=== PATIENT | male | born 1995 | race Hispanic/Latino ===

== ENCOUNTER 2020-02-19 16:31 | Emergency (ER) | payer SELFPAY ==
--- NOTE | 2020-02-19 17:50 | EDPHYS ---
Physician Documentation [facility] Name: Judd Sifuentes Age: 24 yrs Sex: Male : 1995 Arrival Date: 02/19/2020 Time: 16:33 Bed 15 Private MD: ED Physician Mynor Wells HPI: 02/18 17:20 This 24 yrs old Male presents to ER via Wheelchair with complaints of Toe jr8 Injury. 17:20 The patient presents with pain, that is acute, tenderness. The complaints affect the jr8 right foot. Context: The problem was sustained at home. Onset: The symptoms/episode began/occurred acutely, yesterday. Modifying factors: The symptoms are alleviated by nothing, the symptoms are aggravated by weight bearing. Associated signs and symptoms: The patient has no apparent associated signs or symptoms. Severity of symptoms: At their worst the symptoms were mild, in the emergency department the symptoms are unchanged. The patient has not experienced similar symptoms in the past. The patient has not recently seen a physician. Patient stated that he stubbed his 5th toe on right foot twice yesterday. Has bruising and pain with swelling to digit. Wants to make sure everything is ok . Historical: - Allergies: 16:46 No Known Allergies; ca1 - Home Meds: 16:46 None [Active]; ca1 - PMHx: 16:46 None; ca1 - PSHx: 16:46 None; ca1 - Immunization history:: Adult Immunizations not up to date. - Social history:: Smoking status: Patient reports the use of cigarette tobacco products, denies chronic smoking, but will smoke occasionally. ROS: 17:20 Eyes: Negative for injury, pain, redness, and discharge, ENT: Negative for injury, jr8 pain, and discharge, Neck: Negative for injury, pain, and swelling, Cardiovascular: Negative for chest pain, palpitations, and edema, Respiratory: Negative for shortness of breath, cough, wheezing, and pleuritic chest pain, Abdomen/GI: Negative for abdominal pain, nausea, vomiting, diarrhea, and constipation, Back: Negative for injury and pain, Skin: Negative for injury, rash, and discoloration, Neuro: Negative for headache, weakness, numbness, tingling, and seizure. 17:20 MS/extremity: Positive for ecchymosis, pain, swelling, tenderness, of the right fifth toe. Exam: 17:20 Constitutional: This is a well developed, well nourished patient who is awake, alert, jr8 and in no acute distress. Cardiovascular: Regular rate and rhythm with a normal S1 and S2. No gallops, murmurs, or rubs. Normal PMI, no JVD. No pulse deficits. Respiratory: Lungs have equal breath sounds bilaterally, clear to auscultation and percussion. No rales, rhonchi or wheezes noted. No increased work of breathing, no retractions or nasal flaring. Skin: Warm, dry with normal turgor. Normal color with no rashes, no lesions, and no evidence of cellulitis. Neuro: Awake and alert, GCS 15, oriented to person, place, time, and situation. Cranial nerves II-XII grossly intact. Motor strength 5/5 in all extremities. Sensory grossly intact. Cerebellar exam normal. Normal gait. 17:20 Musculoskeletal/extremity: Extremities: grossly normal except: noted in the right fifth toe: ecchymosis, pain, swelling, tenderness, ROM: intact in all extremities, Circulation is intact in all extremities. Sensation intact. Vital Signs: 16:44 BP 115 / 60; Pulse 67; Resp 18 S; Temp 98.1(TE); Pulse Ox 99% on R/A; Weight 60.33 kg ca1 (R); Height 5 ft. 5 in. (165.10 cm) (R); Pain 6/10; 17:07 BP 124 / 70; Pulse 70; Resp 17; Pulse Ox 98% on R/A; tw2 17:54 BP 115 / 60; Pulse 72; Resp 17; Pulse Ox 99% on R/A; tw2 16:44 Body Mass Index 22.13 (60.33 kg, 165.10 cm) ca1 MDM: 16:48 Patient medically screened. jr8 17:49 Data reviewed: vital signs, nurses notes, radiologic studies, plain films, and as a jr8 result, I will discharge patient. Data interpreted: Pulse oximetry: on room air is 98 %. Interpretation: normal. Counseling: I had a detailed discussion with the patient and/or guardian regarding: the historical points, exam findings, and any diagnostic results supporting the discharge/admit diagnosis, radiology results, the need for outpatient follow up, a family practitioner, to return to the emergency department if symptoms worsen or persist or if there are any questions or concerns that arise at home. 02/18 17:00 Order name: XRAY Foot RIGHT 3 View jr8 Administered Medications: No medications were administered Disposition: 19:01 Co-signature as Attending Physician, Mynor Wells MD. rn Disposition: 02/19/20 17:50 Discharged to Home. Impression: Sprain of toe, Contusion of right lesser toe(s) without damage to nail. - Condition is Stable. - Discharge Instructions: Contusion. - Medication Reconciliation Form, Thank You Letter, Antibiotic Education, Prescription Opioid Use, Work release form, Family Work Release form. - Follow up: Private Physician; When: As needed; Reason: Recheck today's complaints, Continuance of care, Re-evaluation by your physician. - Problem is new. - Symptoms have improved. Signatures: Dispatcher [employer] EDMS Mynor Wells MD MD rn Roszak, Josh, PA PA jr8 Yaneli Sprague RN RN tw2 Brianna Velásquez RN RN ca1 Corrections: (The following items were deleted from the chart) 17:50 17:50 02/19/2020 17:50 Discharged to Home. Impression: Sprain of toe. Condition is jr8 Stable. Forms are Work release form, Family Work Release, Medication Reconciliation Form, Thank You Letter, Antibiotic Education, Prescription Opioid Use. Follow up: Private Physician; When: As needed; Reason: Recheck today's complaints, Continuance of care, Re-evaluation by your physician. Problem is new. Symptoms have improved. jr8 17:55 17:50 02/19/2020 17:50 Discharged to Home. Impression: Sprain of toe; Contusion of tw2 right lesser toe(s) without damage to nail. Condition is Stable. Forms are Work release form, Family Work Release, Medication Reconciliation Form, Thank You Letter, Antibiotic Education, Prescription Opioid Use. Follow up: Private Physician; When: As needed; Reason: Recheck today's complaints, Continuance of care, Re-evaluation by your physician. Problem is new. Symptoms have improved. jr8
--- NOTE | 2020-02-19 17:50 | ER ---
Nurse's Notes [facility] Name: Judd Sifuentes Age: 24 yrs Sex: Male : 1995 Arrival Date: 02/19/2020 Time: 16:33 Bed 15 Private MD: Diagnosis: Sprain of toe;Contusion of right lesser toe(s) without damage to nail Presentation: 02/18 16:44 Chief complaint: Patient states: Hit 5th digit of R foot to bed twice today. ca1 Coronavirus screen: Client denies travel out of the [place] in the last 14 days. At this time, the client does not indicate any symptoms associated with coronavirus-19. Ebola Screen: Patient negative for fever greater than or equal to 101.5 degrees Fahrenheit, and additional compatible Ebola Virus Disease symptoms Patient denies exposure to infectious person. Patient denies travel to an Ebola-affected area in the 21 days before illness onset. No symptoms or risks identified at this time. Initial Sepsis Screen: Does the patient meet any 2 criteria? No. Patient's initial sepsis screen is negative. Does the patient have a suspected source of infection? No. Patient's initial sepsis screen is negative. Risk Assessment: Do you want to hurt yourself or someone else? Patient reports no desire to harm self or others. Onset of symptoms was February 19, 2020. 16:44 Method Of Arrival: Wheelchair ca1 16:44 Acuity: MARKO 4 ca1 Historical: - Allergies: 16:46 No Known Allergies; ca1 - Home Meds: 16:46 None [Active]; ca1 - PMHx: 16:46 None; ca1 - PSHx: 16:46 None; ca1 - Immunization history:: Adult Immunizations not up to date. - Social history:: Smoking status: Patient reports the use of cigarette tobacco products, denies chronic smoking, but will smoke occasionally. Screenin:48 Abuse screen: Denies threats or abuse. Nutritional screening: No deficits noted. tw2 Tuberculosis screening: No symptoms or risk factors identified. Fall Risk None identified. Assessment: 16:49 General: Appears in no apparent distress. Behavior is calm, cooperative, appropriate tw2 for age. Pain: Complains of pain in right fifth toe and Right fifth toenail. Neuro: Level of Consciousness is awake, alert, obeys commands, Oriented to person, place, time, situation. 17:05 Cardiovascular: Patient's skin is warm and dry. Respiratory: Airway is patent tw2 Respiratory effort is even, unlabored, Respiratory pattern is regular, symmetrical. GI: No signs and/or symptoms were reported involving the gastrointestinal system. : No signs and/or symptoms were reported regarding the genitourinary system. EENT: No signs and/or symptoms were reported regarding the EENT system. Derm: peeling and dryness noted to bottom of RIGHT foot, appears to be a thickened right 5th toenail with bruising noted around the nail. Musculoskeletal: Circulation, motion, and sensation intact. Range of motion: intact in all extremities. 17:07 Reassessment: Patient appears in no apparent distress at this time. No changes from tw2 previously documented assessment. Patient and/or family updated on plan of care and expected duration. Pain level reassessed. Patient is alert, oriented x 3, equal unlabored respirations, skin warm/dry/pink. 17:54 Reassessment: Patient appears in no apparent distress at this time. No changes from tw2 previously documented assessment. Patient and/or family updated on plan of care and expected duration. Pain level reassessed. Patient is alert, oriented x 3, equal unlabored respirations, skin warm/dry/pink. Vital Signs: 16:44 BP 115 / 60; Pulse 67; Resp 18 S; Temp 98.1(TE); Pulse Ox 99% on R/A; Weight 60.33 kg ca1 (R); Height 5 ft. 5 in. (165.10 cm) (R); Pain 6/10; 17:07 BP 124 / 70; Pulse 70; Resp 17; Pulse Ox 98% on R/A; tw2 17:54 BP 115 / 60; Pulse 72; Resp 17; Pulse Ox 99% on R/A; tw2 16:44 Body Mass Index 22.13 (60.33 kg, 165.10 cm) ca1 ED Course: 16:33 Patient arrived in ED. as 16:45 Triage completed. ca1 16:46 Arm band placed on right wrist. ca1 16:48 Yaneli Sprague RN is Primary Nurse. tw2 16:48 Kin Lui PA is PHCP. jr8 16:48 Mynor Wells MD is Attending Physician. jr8 16:48 Bed in low position. Call light in reach. Pulse ox on. NIBP on. tw2 17:55 No provider procedures requiring assistance completed. Patient did not have IV access tw2 during this emergency room visit. 17:56 XRAY Foot RIGHT 3 View In Process Unspecified. EDMS Administered Medications: No medications were administered Outcome: 17:50 Discharge ordered by . sydni 17:55 Discharged to home ambulatory, with significant other. tw2 17:55 Condition: stable 17:55 Discharge instructions given to patient, significant other, Instructed on discharge instructions, follow up and referral plans. Demonstrated understanding of instructions, follow-up care. 17:55 Patient left the ED. tw2 Signatures: Dispatcher [employer] EDConnie Valero Josh, PA PA jr8 Yaneli Sprague RN RN tw2 Brianna Velásquez RN RN ca1 Corrections: (The following items were deleted from the chart) 17:07 16:49 Neuro: Level of Consciousness is awake, alert, obeys commands, Oriented to tw2 person, place, time, situation, tw2
[2020-02-19 18:20] VITALS: TEMP 98.1
[2020-02-19 18:23] VITALS: BP 115/60; O2SAT 99
--- NOTE | 2020-02-19 18:25 | RAD REPORT ---
EXAM DESCRIPTION: RAD - Foot Right 3 View - 02/19/2020 5:55 pm CLINICAL HISTORY: PAIN COMPARISON: No comparisons FINDINGS: Mild soft tissue swelling is present involving the fifth toe. No acute fracture or disloca tion seen.
== END 2020-02-19 17:55 | disposition home or self-care (01) ==
LOC: ER 16:31
DX: S93.504A Unspecified sprain of right lesser toe(s), initial encounter (principal); S90.121A Contusion of right lesser toe(s) without damage to nail, initial encounter; W22.03XA Walked into furniture, initial encounter; Y93.01 Activity, walking, marching and hiking; Y92.003 Bedroom of unspecified non-institutional (private) residence as the place of occurrence of the external cause; F17.210 Nicotine dependence, cigarettes, uncomplicated
CPT/HCPCS: 99283

== ENCOUNTER 2020-09-23 12:36 | Emergency (ER) | payer SELFPAY ==
--- NOTE | 2020-09-23 14:12 | RAD REPORT ---
EXAM DESCRIPTION: Diane Bray (2 Views)09/23/2020 2:05 pm CLINICAL HISTORY: Chest pain COMPARISON: None FINDINGS: The lungs appear clear of acute infiltrate. The heart is normal size IMPRESSION: No acute abnormalities displayed
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
[2020-09-23 14:38] VITALS: BP 137/82; TEMP 98; O2SAT 100
== END 2020-09-23 14:27 | disposition home or self-care (01) ==
LOC: ER 12:36
DX: R07.89 Other chest pain (principal)
CPT/HCPCS: 71046; 99283

== ENCOUNTER 2021-01-16 16:12 | Emergency (ER) | payer SELFPAY ==
[2021-01-16] MEDS ORDERED: HYDROCODONE/APAP 5/325 MG TAB ONE (18:35)
[2021-01-16 18:41] LABS: Urine Blood Trace-intact (Negative); Urine Glucose Negative (Negative); Urine Protein Negative (Negative)
--- NOTE | 2021-01-16 19:12 | RAD REPORT ---
EXAM DESCRIPTION: RAD - Lumbar Spine 3 Views - 01/16/2021 6:51 pm CLINICAL HISTORY: Back pain FINDINGS: The alignment of the lumbar spine is satisfactory. No fracture or dislocation is seen. Hemisacralization L5
--- NOTE | 2021-01-16 22:36 | EDPHYS ---
Physician Documentation [facility] Name: Judd Sifuentes Age: 25 yrs Sex: Male : 1995 Arrival Date: 01/16/2021 Time: 16:32 Bed 12 Private MD: ED Physician Martin Welch HPI: 01/16 22:29 This 25 yrs old Male presents to ER via Ambulatory with complaints of Fever, cp Back Pain. 22:29 The patient reports fever, with an emergency department temperature of 100.4 degrees cp Fahrenheit. Onset: The symptoms/episode began/occurred this morning. Associated signs and symptoms: Pertinent positives: backache, body aches, Pertinent negatives: abdominal pain, chest pain, cough, diarrhea, shortness of breath, sore throat, vomiting. Severity of symptoms: in the emergency department the symptoms have improved moderately. Historical: - Allergies: 18:03 No Known Allergies; aa5 - Home Meds: 18:00 None [Active]; aa5 - PMHx: 18:00 None; aa5 - PSHx: 18:00 None; aa5 - Immunization history:: Client reports having NOT received the Covid vaccine. - Social history:: Smoking status: Patient reports the use of cigarette tobacco products, denies chronic smoking, but will smoke occasionally. ROS: 22:31 Eyes: Negative for injury, pain, redness, and discharge. cp 22:31 Constitutional: Positive for body aches, fever, Negative for poor PO intake. 22:31 ENT: Negative for ear pain, sore throat, difficulty swallowing, difficulty handling secretions. 22:31 Neck: Negative for pain with movement, pain at rest, stiffness. 22:31 Cardiovascular: Negative for chest pain. 22:31 Respiratory: Negative for cough, shortness of breath, wheezing. 22:31 Abdomen/GI: Negative for abdominal pain, nausea, vomiting, and diarrhea. 22:31 Back: Positive for pain at rest, pain with movement, of the mid and lower back. 22:31 Neuro: Negative for altered mental status, headache, numbness, tingling, weakness. 22:31 All other systems are negative. Exam: 22:32 Head/Face: Normocephalic, atraumatic. cp 22:32 Constitutional: The patient appears in no acute distress, alert, awake, comfortable, non-toxic, well developed, well nourished. 22:32 Eyes: Periorbital structures: appear normal, Conjunctiva: normal, no exudate, no injection, Lids and lashes: appear normal, bilaterally. 22:32 ENT: External ear(s): are unremarkable, Nose: is normal, Posterior pharynx: Airway: no evidence of obstruction, patent. 22:32 Neck: ROM/movement: is normal, is supple, without pain, no range of motions limitations, no meningismus, no nuchal rigidity. 22:32 Chest/axilla: Inspection: normal, Palpation: is normal, no crepitus, no tenderness. 22:32 Cardiovascular: Rate: normal, Rhythm: regular. 22:32 Respiratory: the patient does not display signs of respiratory distress, Respirations: normal, no use of accessory muscles, no retractions, labored breathing, is not present, Breath sounds: are clear throughout, no decreased breath sounds. 22:32 Abdomen/GI: Inspection: abdomen appears normal, Palpation: abdomen is soft and non-tender, in all quadrants. 22:32 Back: pain, that is very mild, of the low back area and mid back area, ROM is normal. 22:32 Neuro: Orientation: to person, place \T\ time. Mentation: is normal, Motor: moves all fours, strength is normal, Sensation: is normal. Vital Signs: 18:01 BP 125 / 49; Pulse 92; Resp 18 S; Temp 100.4(O); Pulse Ox 100% on R/A; Weight 61.23 kg aa5 (R); Height 5 ft. 5 in. (165.10 cm) (R); Pain 9/10; 22:23 BP 125 / 65; Pulse 79; Resp 20; Temp 98.2(O); Pulse Ox 100% on R/A; mw2 18:01 Body Mass Index 22.46 (61.23 kg, 165.10 cm) aa5 MDM: 22:00 Differential diagnosis: URI, bronchitis, pneumonia UTI, acute low back pain. cp 22:35 Patient medically screened. cp 22:35 Data reviewed: vital signs, nurses notes, lab test result(s), radiologic studies, plain cp films, and as a result, I will discharge patient. 22:35 Test interpretation: by ED physician or midlevel provider: plain radiologic studies. cp Counseling: I had a detailed discussion with the patient and/or guardian regarding: the historical points, exam findings, and any diagnostic results supporting the discharge/admit diagnosis, to return to the emergency department if symptoms worsen or persist or if there are any questions or concerns that arise at home. ED course: VSS. Patient appears non-toxic and no signs of respiratory distress. Will discharge to home for continued monitoring. 01/16 18:03 Order name: Flu; Complete Time: 22:24 aa5 01/16 18:03 Order name: Lumbar Spine (3 Views) XRAY; Complete Time: 22:24 aa5 01/16 18:40 Order name: Urine Dipstick-Ancillary; Complete Time: 22:24 EDMS 01/16 22:34 Interpretation: Normal except: UKET 1+; UBLD Trace-intact. 01/16 19:53 Order name: SARS-COV-2 RT PCR; Complete Time: 22:24 EDMS 01/16 22:34 Interpretation: Results reviewed. 01/16 18:03 Order name: Urine Dipstick-Ancillary (obtain specimen); Complete Time: 18:41 aa5 Administered Medications: 18:13 Drug: HYDROcodone-acetaminophen 5 mg-325 mg 1 tabs Route: PO; aa5 Disposition: 01/17 05:45 Co-signature as Attending Physician, Martin Welch MD. [email or web address] Disposition Summary: 01/16/21 22:35 Discharge Ordered Location: Home cp Condition: Stable cp Diagnosis - Dorsalgia, unspecified cp - SARS-associated coronavirus as the cause of diseases classified elsewhere cp Followup: cp - With: Private Physician - When: 2 - 3 days - Reason: Worsening of condition Discharge Instructions: - Discharge Summary Sheet cp - Acute Back Pain, Adult cp - COVID-19 cp - Things to Know about the COVID-19 Pandemic - [facility] cp - 10 Things You Can Do to Manage Your COVID-19 Symptoms at Home - [facility] cp - COVID-19: Quarantine vs. Isolation - [facility] cp - Prevent the Spread of COVID-19 if You Are Sick - [facility] cp Forms: - Medication Reconciliation Form cp - Thank You Letter cp - Antibiotic Education cp - Prescription Opioid Use cp - Work release form bb Prescriptions: - Ibuprofen 800 mg Oral Tablet - take 1 tablet by ORAL route every 8 hours As needed take with food; 30 tablet; cp Refills: 0, Product Selection Permitted Signatures: Dispatcher [employer] EDMS Natalie Paris, RN RN aa5 Ned Sheldon PA PA cp Holmes, Maurice, MD MD [email or web address] Corrections: (The following items were deleted from the chart) 01/16 18:54 18:04 CORONAVIRUS+Z ordered. EDMS EDMS
--- NOTE | 2021-01-16 22:36 | ER ---
Nurse's Notes [facility] Name: Judd Sifuentes Age: 25 yrs Sex: Male : 1995 Arrival Date: 01/16/2021 Time: 16:32 Bed 12 Private MD: Diagnosis: Dorsalgia, unspecified;SARS-associated coronavirus as the cause of diseases classified elsewhere Presentation: 01/16 18:01 Chief complaint: Patient states: lower back pain and fever up to 101.0*F that began aa5 today. Denies burning with urination. Denies fall or injury. Coronavirus screen: cough unrelated to allergies, fever. Ebola Screen: Patient negative for fever greater than or equal to 101.5 degrees Fahrenheit, and additional compatible Ebola Virus Disease symptoms. Initial Sepsis Screen: Does the patient meet any 2 criteria? No. Patient's initial sepsis screen is negative. Does the patient have a suspected source of infection? No. Patient's initial sepsis screen is negative. Risk Assessment: Do you want to hurt yourself or someone else? Patient reports no desire to harm self or others. Onset of symptoms was January 2021. 18:01 Method Of Arrival: Ambulatory aa5 18:01 Acuity: MARKO 3 aa5 Historical: - Allergies: 18:03 No Known Allergies; aa5 - Home Meds: 18:00 None [Active]; aa5 - PMHx: 18:00 None; aa5 - PSHx: 18:00 None; aa5 - Immunization history:: Client reports having NOT received the Covid vaccine. - Social history:: Smoking status: Patient reports the use of cigarette tobacco products, denies chronic smoking, but will smoke occasionally. Assessment: 01/17 07:25 Reassessment: Patient is alert, oriented x 3, equal unlabored respirations, skin bb warm/dry/pink. pt seen by this RN at discharge. Pt verbalized understanding of and agrees to plan of care discharge instructions given pt ambulated with steady gait to exit. Vital Signs: 01/16 18:01 BP 125 / 49; Pulse 92; Resp 18 S; Temp 100.4(O); Pulse Ox 100% on R/A; Weight 61.23 kg aa5 (R); Height 5 ft. 5 in. (165.10 cm) (R); Pain 9/10; 22:23 BP 125 / 65; Pulse 79; Resp 20; Temp 98.2(O); Pulse Ox 100% on R/A; mw2 18:01 Body Mass Index 22.46 (61.23 kg, 165.10 cm) aa5 ED Course: 16:32 Patient arrived in ED. as 18:00 Arm band placed on. aa5 18:02 Triage completed. aa5 18:15 COVID swab sent to lab. Flu and/or RSV swab sent to lab. aa5 18:51 Lumbar Spine (3 Views) XRAY In Process Unspecified. EDMS 22:20 Ned Sheldon PA is PHCP. cp 22:20 Martin Welch MD is Attending Physician. cp 01/17 07:25 Patient did not have IV access during this emergency room visit. bb Administered Medications: 01/16 18:13 Drug: HYDROcodone-acetaminophen 5 mg-325 mg 1 tabs Route: PO; aa5 Outcome: 22:35 Discharge ordered by MD. cp 22:45 Patient left the ED. bb 01/17 07:25 Discharged to home ambulatory. bb Condition: stable Discharge instructions given to patient, Instructed on discharge instructions, follow up and referral plans. medication usage, Demonstrated understanding of instructions, follow-up care, medications, Prescriptions given X 1. Signatures: Dispatcher [employer] YOBANIIA Connie Damon Brenda, RN RN bb Natalie Paris, RN RN aa5 Ned Sheldon PA PA cp [place], MyKena mw2
[2021-01-16 22:53] VITALS: O2SAT 100
[2021-01-16 22:54] VITALS: BP 125/65; TEMP 98.2
== END 2021-01-16 22:45 | disposition home or self-care (01) ==
LOC: ER 16:12
DX: U07.1 COVID-19 (principal); M54.9 Dorsalgia, unspecified; F17.210 Nicotine dependence, cigarettes, uncomplicated
CPT/HCPCS: 72100; 81003; 87804; 99284; U0003